=== PATIENT | female | born 1995 | race Caucasian/White ===

== ENCOUNTER 2017-07-07 17:41 | Outpatient (CLI) | payer OTHER ==
[2017-07-07 18:18] LABS: ADD MAN DIFF? NO
[2017-07-07 18:21] LABS: BASOPHILS % 0.2 % (0.0-2.0); EOSINOPHILS % 0.1 % (0.0-7.0); HEMATOCRIT 35.9 % (37.0-47.0); HEMOGLOBIN 12.1 g/dl (12.0-16.0); LYMPHOCYTES % 20.8 % (15.0-51.0); MEAN CORPUSCULAR HEMOGLOBIN 28.5 pg (29.0-33.0); MEAN CORPUSCULAR HGB CONC 33.7 g/dl (32.0-37.0); MEAN CORPUSCULAR VOLUME 84.7 fl (82.0-101.0); MEAN PLATELET VOLUME 12.6 fl (7.4-10.4); MONOCYTE # 0.6 10^3/ul (0.3-0.9); NEUTROPHIL # 6.9 10^3/ul (1.6-7.5); NEUTROPHILS % 72.6 % (39.0-77.0); PLATELET COUNT 224 10^3/UL (140-415); RED BLOOD COUNT 4.24 10^6/ul (4.20-5.40); RED CELL DISTRIBUTION WIDTH 14.3 % (11.5-14.5)
[2017-07-07 18:21] LABS: WHITE BLOOD COUNT 9.5 10^3/ul (4.8-10.8)
[2017-07-07 18:39] LABS: INR 0.89; PARTIAL THROMBOPLASTIN TIME 25.6 Sec (25.0-35.0); PROTIME 12.1 Sec (11.9-14.9); PT RATIO 0.9
[2017-07-07 18:42] LABS: ALANINE AMINOTRANSFERASE 45 IU/L (13-69); ALBUMIN 3.7 g/dl (3.3-4.9); ALBUMIN/GLOBULIN RATIO 1.12; ALKALINE PHOSPHATASE 196 IU/L (42-121); ANION GAP 16 (8-16); ASPARTATE AMINO TRANSFERASE 35 IU/L (15-46); BILIRUBIN,INDIRECT 0.1 mg/dl (0-1.1); BILIRUBIN,TOTAL 0.1 mg/dl (0.2-1.3); BLOOD UREA NITROGEN 12 mg/dl (7-20); CALCIUM 9.1 mg/dl (8.4-10.2); CARBON DIOXIDE 22 mmol/L (21-31); CHLORIDE 103 mmol/L (97-110); CREATININE 0.59 mg/dl (0.44-1.00); GLUCOSE 110 mg/dl (70-220); POTASSIUM 3.9 mmol/L (3.5-5.1); SODIUM 137 mmol/L (135-144); URIC ACID 5.9 mg/dl (3.1-7.9)
[2017-07-07 18:47] LABS: ADD UMIC YES; UR ASCORBIC ACID 40 mg/dL (NEGATIVE); UR BACTERIA FEW /HPF (NONE SEEN); UR BILIRUBIN (Dip) NEGATIVE (NEGATIVE); UR BLOOD (Dip) NEGATIVE (NEGATIVE); UR CALCIUM OXALATE CRYSTAL FEW /HPF (NONE SEEN); UR CLARITY CLOUDY (CLEAR); UR COLOR YELLOW (YELLOW); UR GLUCOSE (Dip) NEGATIVE (NEGATIVE); UR KETONES (Dip) NEGATIVE (NEGATIVE); UR LEUKOCYTE ESTERASE (Dip) 3+ Leu/ul (NEGATIVE); UR NITRITE (Dip) NEGATIVE (NEGATIVE); UR RBC 2 /HPF (0-5); UR SPECIFIC GRAVITY (Dip) 1.027 (1.003-1.030); UR SQUAMOUS EPITHELIAL CELL MODERATE /HPF (FEW); UR TOTAL PROTEIN (Dip) 1+ mg/dl (NEGATIVE); UR UROBILINOGEN (Dip) 1+ mg/dL (NEGATIVE); UR WBC 54 /HPF (0-5)
== END 2017-07-07 20:16 | disposition home or self-care (01) ==
LOC: OBT 17:41 → L-D 17:42 → OBT 20:16
DX: O13.3 Gestational [pregnancy-induced] hypertension without significant proteinuria, third trimester (principal); Z3A.37 37 weeks gestation of pregnancy
CPT/HCPCS: 36415; 76818; 80053; 81001; 84560; 85025; 85610; 85730; 87086

== ENCOUNTER 2017-07-15 17:28 | Outpatient (CLI) | payer OTHER ==
[2017-07-15 21:56] LABS: ADD UMIC YES; UR ASCORBIC ACID NEGATIVE (NEGATIVE); UR BILIRUBIN (Dip) NEGATIVE (NEGATIVE); UR BLOOD (Dip) 2+ mg/dL (NEGATIVE); UR CLARITY SLIGHTLY CLOUDY (CLEAR); UR COLOR YELLOW (YELLOW); UR GLUCOSE (Dip) NEGATIVE (NEGATIVE); UR KETONES (Dip) NEGATIVE (NEGATIVE); UR LEUKOCYTE ESTERASE (Dip) 1+ Leu/ul (NEGATIVE); UR NITRITE (Dip) NEGATIVE (NEGATIVE); UR RBC 0 /HPF (0-5); UR SPECIFIC GRAVITY (Dip) 1.017 (1.003-1.030); UR SQUAMOUS EPITHELIAL CELL FEW /HPF (FEW); UR TOTAL PROTEIN (Dip) NEGATIVE (NEGATIVE); UR UROBILINOGEN (Dip) 1+ mg/dL (NEGATIVE); UR WBC 4 /HPF (0-5)
== END 2017-07-15 23:15 | disposition home or self-care (01) ==
LOC: OBT 17:28 → L-D 17:29 → OBT 23:15
DX: O62.9 Abnormality of forces of labor, unspecified (principal); Z3A.39 39 weeks gestation of pregnancy
CPT/HCPCS: 76815; 76818; 81001

== ENCOUNTER 2017-07-20 04:05 | Inpatient (IN) | payer OTHER ==
[2017-07-20] MEDS ORDERED: CARBOPROST 250 MCG INJ IM ×2 (05:00→18:30)
[2017-07-20] MEDS ORDERED: BUTORPHANOL 2 MG INJ IV (05:00)
[2017-07-20] MEDS ORDERED: LIDOCAINE 1% (MPF) 30 ML INJ INJ (05:00)
[2017-07-20] MEDS ORDERED: IBUPROFEN 600 MG TAB PO (05:00)
[2017-07-20] MEDS ORDERED: OXYTOCIN 30 UNITS/LR 500 ML IV ×3 (05:00→18:30)
[2017-07-20 05:10] LABS: ADD MAN DIFF? NO
[2017-07-20 05:12] LABS: BASOPHILS % 0.1 % (0.0-2.0); EOSINOPHILS # 0.1 10^3/ul (0.0-0.5); EOSINOPHILS % 0.4 % (0.0-7.0); HEMATOCRIT 35.7 % (37.0-47.0); HEMOGLOBIN 11.9 g/dl (12.0-16.0); LYMPHOCYTES # 2.2 10^3/ul (0.8-2.9); LYMPHOCYTES % 13.4 % (15.0-51.0); MEAN CORPUSCULAR HEMOGLOBIN 27.4 pg (29.0-33.0); MEAN CORPUSCULAR HGB CONC 33.3 g/dl (32.0-37.0); MEAN CORPUSCULAR VOLUME 82.3 fl (82.0-101.0); MEAN PLATELET VOLUME 12.7 fl (7.4-10.4); NEUTROPHIL # 13.2 10^3/ul (1.6-7.5); NEUTROPHILS % 79.6 % (39.0-77.0); PLATELET COUNT 207 10^3/UL (140-415); RED BLOOD COUNT 4.34 10^6/ul (4.20-5.40); RED CELL DISTRIBUTION WIDTH 14.3 % (11.5-14.5)
[2017-07-20 05:12] LABS: WHITE BLOOD COUNT 16.6 10^3/ul (4.8-10.8)
[2017-07-20] MEDS: LACTATED RINGER'S 1,000 ML IV ×3 (05:31→10:12)
[2017-07-20 05:41] LABS: INR 0.92; PROTIME 12.4 Sec (11.9-14.9)
[2017-07-20 05:42] LABS: PARTIAL THROMBOPLASTIN TIME 28.1 Sec (25.0-35.0)
[2017-07-20 05:43] LABS: ALANINE AMINOTRANSFERASE 293 IU/L (13-69); ALBUMIN 3.8 g/dl (3.3-4.9); ALBUMIN/GLOBULIN RATIO 1.02; ALKALINE PHOSPHATASE 254 IU/L (42-121); ANION GAP 20 (8-16); ASPARTATE AMINO TRANSFERASE 188 IU/L (15-46); BILIRUBIN,INDIRECT 0.2 mg/dl (0-1.1); BILIRUBIN,TOTAL 0.2 mg/dl (0.2-1.3); BLOOD UREA NITROGEN 10 mg/dl (7-20); CALCIUM 9.6 mg/dl (8.4-10.2); CARBON DIOXIDE 22 mmol/L (21-31); CHLORIDE 104 mmol/L (97-110); CREATININE 0.65 mg/dl (0.44-1.00); GLUCOSE 94 mg/dl (70-220); POTASSIUM 3.9 mmol/L (3.5-5.1); SODIUM 142 mmol/L (135-144); TOTAL PROTEIN 7.5 g/dl (6.1-8.1); URIC ACID 5.2 mg/dl (3.1-7.9)
[2017-07-20] MEDS ORDERED: FENTAnyl 2MCG/ML-ROPIV 0.2% 100 ML (07:54)
[2017-07-20] MEDS ORDERED: DIPHENHYDRAMINE 50 MG INJ IV ×2 (10:00→18:00)
[2017-07-20] MEDS ORDERED: NALOXONE (0.4 MG/ML) INJ IV ×2 (10:00→18:00)
[2017-07-20] MEDS: FENTAnyl 2MCG/ML-ROPIV 0.2% 100 ML BAG EPI ×2 (10:16→13:58)
[2017-07-20] MEDS: DEXTROSE 5%-LR 1,000 ML IV (13:50)
[2017-07-20 14:25] LABS: ADD UMIC YES; UR ASCORBIC ACID NEGATIVE (NEGATIVE); UR BACTERIA FEW /HPF (NONE SEEN); UR BILIRUBIN (Dip) NEGATIVE (NEGATIVE); UR BLOOD (Dip) 3+ mg/dL (NEGATIVE); UR CLARITY SLIGHTLY CLOUDY (CLEAR); UR COLOR AMBER (YELLOW); UR GLUCOSE (Dip) NEGATIVE (NEGATIVE); UR KETONES (Dip) 1+ mg/dL (NEGATIVE); UR LEUKOCYTE ESTERASE (Dip) NEGATIVE Leu/ul (NEGATIVE); UR MUCUS FEW /HPF (NONE SEEN); UR NITRITE (Dip) NEGATIVE (NEGATIVE); UR RBC > 182 /HPF (0-5); UR SPECIFIC GRAVITY (Dip) 1.019 (1.003-1.030); UR SQUAMOUS EPITHELIAL CELL FEW /HPF (FEW); UR TOTAL PROTEIN (Dip) 2+ mg/dl (NEGATIVE); UR UROBILINOGEN (Dip) 1+ mg/dL (NEGATIVE); UR WBC 6 /HPF (0-5)
[2017-07-20] MEDS: OXYTOCIN 30 UNITS/LR 500 ML IV ×3 (14:56→22:34)
[2017-07-20] MEDS: AMPICILLIN 2 GM/NS (PMX) 100 ML IVPB ×2 (15:00→23:45)
[2017-07-20] MEDS ORDERED: ACETAMINOPHEN 1000MG/100ML IV 100 ML IVPB (15:00)
[2017-07-20] MEDS: MINERAL OIL LIGHT 10 ML VIAL TOP (15:13)
[2017-07-20] MEDS: ACETAMINOPHEN 500 MG TAB PO (15:15)
[2017-07-20] MEDS: CLINDAMYCIN 900 MG/D5W (PMX) 50 ML IVPB ×2 (15:18→21:42)
[2017-07-20 15:20] LABS: RAPID PLASMA REAGIN NONREACTIVE (NR)
[2017-07-20] MEDS: GENTAMICIN 80 MG/NS (PMX) 50 ML IVPB (16:03)
[2017-07-20] MEDS: CEFAZOLIN 2 GM/50 ML (PMX) 50 ML IVPB (16:15)
[2017-07-20] MEDS ORDERED: PHENYLephrine (100 MCG/ML) 5ML SYG ×2 (16:20→16:41)
[2017-07-20] MEDS ORDERED: OXYTOCIN 10 UNIT INJ ×2 (16:30→16:39)
[2017-07-20] MEDS ORDERED: morphine SULFATE/PF (10 MG/10 ML) INJ (16:58)
[2017-07-20] MEDS: MISOPROSTOL 200 MCG TAB PR (17:15)
[2017-07-20] MEDS: METHYLERGONOVINE 0.2 MG INJ IM (17:42)
[2017-07-20] MEDS ORDERED: ONDANSETRON 4 MG INJ IV (18:00)
[2017-07-20] MEDS ORDERED: morphine 2 MG INJ IV (18:00)
[2017-07-20] MEDS: KETOROLAC 30 MG INJ IV (18:21)
[2017-07-20] MEDS ORDERED: DEXTROSE 5%-LR 1,000 ML IV (18:27)
[2017-07-20] MEDS ORDERED: METHYLERGONOVINE 0.2 MG INJ IM (18:30)
[2017-07-20] MEDS ORDERED: MISOPROSTOL 200 MCG TAB PR (18:30)
[2017-07-20] MEDS ORDERED: METHYLERGONOVINE 0.2 MG TAB PO (18:30)
[2017-07-20] MEDS: ACETAMINOPHEN 1000MG/100ML IV 100 ML IVPB (19:19)
[2017-07-20] MEDS: OXYCODONE/ACETAMINOPHEN (5/325) TAB PO (19:22)
[2017-07-20] MEDS: ONDANSETRON 4 MG INJ IV (20:00)
[2017-07-20] MEDS: SENNA/DOCUSATE NA (8.6MG/50MG) TAB PO (21:00)
[2017-07-21] MEDS: GENTAMICIN 80 MG/NS (PMX) 50 ML IVPB ×3 (01:15→16:55)
[2017-07-21] MEDS: OXYCODONE/ACETAMINOPHEN (5/325) TAB PO ×4 (02:30→18:11)
[2017-07-21] MEDS: KETOROLAC 30 MG INJ IV (05:23)
[2017-07-21] MEDS: AMPICILLIN 2 GM/NS (PMX) 100 ML IVPB ×4 (05:38→23:57)
[2017-07-21] MEDS: CLINDAMYCIN 900 MG/D5W (PMX) 50 ML IVPB ×3 (06:39→21:23)
[2017-07-21] MEDS: SENNA/DOCUSATE NA (8.6MG/50MG) TAB PO ×2 (09:09→21:22)
[2017-07-21 10:55] LABS: HEMATOCRIT 29.5 % (37.0-47.0); HEMOGLOBIN 9.9 g/dl (12.0-16.0); MEAN CORPUSCULAR HEMOGLOBIN 27.7 pg (29.0-33.0); MEAN CORPUSCULAR HGB CONC 33.6 g/dl (32.0-37.0); MEAN CORPUSCULAR VOLUME 82.4 fl (82.0-101.0); MEAN PLATELET VOLUME 12.5 fl (7.4-10.4); PLATELET COUNT 153 10^3/UL (140-415); RED BLOOD COUNT 3.58 10^6/ul (4.20-5.40); RED CELL DISTRIBUTION WIDTH 14.5 % (11.5-14.5)
[2017-07-21 10:55] LABS: WHITE BLOOD COUNT 15.9 10^3/ul (4.8-10.8)
[2017-07-21 11:10] LABS: ADD MAN DIFF? YES; POSITIVE DIFF @See below
[2017-07-21 12:57] LABS: WHITE BLOOD COUNT 15.1 10^3/ul (4.8-10.8)
[2017-07-21 12:57] LABS: HEMATOCRIT 29.4 % (37.0-47.0); HEMOGLOBIN 9.9 g/dl (12.0-16.0); MEAN CORPUSCULAR HEMOGLOBIN 27.9 pg (29.0-33.0); MEAN CORPUSCULAR HGB CONC 33.7 g/dl (32.0-37.0); MEAN CORPUSCULAR VOLUME 82.8 fl (82.0-101.0); MEAN PLATELET VOLUME 12.5 fl (7.4-10.4); PLATELET COUNT 146 10^3/UL (140-415); RED BLOOD COUNT 3.55 10^6/ul (4.20-5.40); RED CELL DISTRIBUTION WIDTH 14.5 % (11.5-14.5)
[2017-07-21 13:10] LABS: ANISOCYTOSIS 2+ (0-0); BAND NEUTROPHILS #M 4.9 10^3/ul (0.0-0.6); BAND NEUTROPHILS % (M) 31 % (0-4); LYMPHOCYTES #M 1.2 10^3/ul (0.8-2.9); LYMPHOCYTES % (M) 8 % (15-51); MICROCYTOSIS 2+ (0-0); MONOCYTE #M 0.1 10^3/ul (0.3-0.9); MONOCYTES % (M) 1 % (0-11); PLATELET ESTIMATE NORMAL; POLYCHROMASIA 3+ (0-0); SEG NEUT #M 10.3 10^3/ul (1.6-7.5); SEGMENTED NEUTROPHILS (M) % 60 % (39-77); SMUDGE%M 2 % (0-0)
[2017-07-21 13:12] LABS: POSITIVE DIFF @See below
[2017-07-21 13:13] LABS: ADD MAN DIFF? YES
[2017-07-21 13:19] LABS: ALANINE AMINOTRANSFERASE 177 IU/L (13-69); ALBUMIN 2.5 g/dl (3.3-4.9); ALBUMIN/GLOBULIN RATIO 0.89; ALKALINE PHOSPHATASE 137 IU/L (42-121); ANION GAP 13 (8-16); ASPARTATE AMINO TRANSFERASE 102 IU/L (15-46); BILIRUBIN,INDIRECT 0.2 mg/dl (0-1.1); BILIRUBIN,TOTAL 0.2 mg/dl (0.2-1.3); BLOOD UREA NITROGEN 9 mg/dl (7-20); CALCIUM 7.9 mg/dl (8.4-10.2); CARBON DIOXIDE 26 mmol/L (21-31); CHLORIDE 101 mmol/L (97-110); CREATININE 0.82 mg/dl (0.44-1.00); GLUCOSE 58 mg/dl (70-220); POTASSIUM 3.7 mmol/L (3.5-5.1); SODIUM 136 mmol/L (135-144); TOTAL PROTEIN 5.3 g/dl (6.1-8.1)
[2017-07-21] MEDS: IBUPROFEN 800 MG TAB PO ×2 (14:00→21:22)
[2017-07-21 14:10] LABS: ANISOCYTOSIS 2+ (0-0); BAND NEUTROPHILS #M 2.8 10^3/ul (0.0-0.6); BAND NEUTROPHILS % (M) 19 % (0-4); BASOPHIL #M 0.3 10^3/ul (0.0-0.0); BASOPHILS % (M) 2 % (0-2); EOSINOPHILS % (M) 1 % (0-7); GIANT THROMBO% (M) 4 % (0-0); LYMPHOCYTES #M 1.3 10^3/ul (0.8-2.9); LYMPHOCYTES % (M) 9 % (15-51); METAMYELOCYTES #M 0.1 10^3/ul (0.0-0.0); METAMYELOCYTES %M 1 % (0-0); MICROCYTOSIS 2+ (0-0); MONOCYTE #M 0.6 10^3/ul (0.3-0.9); MONOCYTES % (M) 4 % (0-11); OVALOCYTES 1+ (0-0); PLATELET ESTIMATE NORMAL; POLYCHROMASIA 1+ (0-0); SEG NEUT #M 10.1 10^3/ul (1.6-7.5); SEGMENTED NEUTROPHILS (M) % 64 % (39-77); SMUDGE%M 2 % (0-0)
[2017-07-21] MEDS: LANOLIN 7 GM TUBE TOP (17:19)
[2017-07-22] MEDS: OXYCODONE/ACETAMINOPHEN (5/325) TAB PO ×6 (00:23→20:28)
[2017-07-22] MEDS: GENTAMICIN 80 MG/NS (PMX) 50 ML IVPB ×3 (01:05→17:05)
[2017-07-22] MEDS: AMPICILLIN 2 GM/NS (PMX) 100 ML IVPB ×4 (05:29→23:52)
[2017-07-22] MEDS: IBUPROFEN 800 MG TAB PO ×3 (05:31→21:57)
[2017-07-22] MEDS: CLINDAMYCIN 900 MG/D5W (PMX) 50 ML IVPB ×3 (06:38→21:57)
[2017-07-22] MEDS: SENNA/DOCUSATE NA (8.6MG/50MG) TAB PO ×2 (08:49→20:27)
[2017-07-22] MEDS ORDERED: INFLUENZA VIRUS VACCINE 0.5 ML (DISPENSING) IM* (09:00)
[2017-07-22 09:49] LABS: ADD MAN DIFF? NO
[2017-07-22 09:58] LABS: WHITE BLOOD COUNT 18.2 10^3/ul (4.8-10.8)
[2017-07-22 09:58] LABS: BASOPHIL # 0.1 10^3/ul (0.0-0.1); BASOPHILS % 0.3 % (0.0-2.0); EOSINOPHILS # 0.1 10^3/ul (0.0-0.5); EOSINOPHILS % 0.6 % (0.0-7.0); HEMATOCRIT 30.6 % (37.0-47.0); HEMOGLOBIN 10.5 g/dl (12.0-16.0); LYMPHOCYTES # 2.4 10^3/ul (0.8-2.9); LYMPHOCYTES % 13.3 % (15.0-51.0); MEAN CORPUSCULAR HEMOGLOBIN 28.4 pg (29.0-33.0); MEAN CORPUSCULAR HGB CONC 34.3 g/dl (32.0-37.0); MEAN CORPUSCULAR VOLUME 82.7 fl (82.0-101.0); MEAN PLATELET VOLUME 12.8 fl (7.4-10.4); MONOCYTE # 0.6 10^3/ul (0.3-0.9); MONOCYTES % 3.3 % (0.0-11.0); NEUTROPHIL # 14.9 10^3/ul (1.6-7.5); NEUTROPHILS % 81.5 % (39.0-77.0); PLATELET COUNT 181 10^3/UL (140-415); RED CELL DISTRIBUTION WIDTH 14.6 % (11.5-14.5)
[2017-07-23] MEDS: GENTAMICIN 80 MG/NS (PMX) 50 ML IVPB ×3 (01:35→17:14)
[2017-07-23] MEDS: OXYCODONE/ACETAMINOPHEN (5/325) TAB PO ×3 (02:30→15:50)
[2017-07-23] MEDS: CLINDAMYCIN 900 MG/D5W (PMX) 50 ML IVPB ×3 (05:24→21:20)
[2017-07-23] MEDS: IBUPROFEN 800 MG TAB PO ×3 (05:24→21:20)
[2017-07-23] MEDS: AMPICILLIN 2 GM/NS (PMX) 100 ML IVPB ×3 (06:10→18:44)
[2017-07-23] MEDS ORDERED: DIPHTH/TET/ACEL PERTUSS (ADULT) 0.5 ML VIAL IM* (09:00)
[2017-07-23] MEDS ORDERED: MEASLES,MUMPS,RUBELLA VACCINE INJ SC* (09:00)
[2017-07-23] MEDS: SENNA/DOCUSATE NA (8.6MG/50MG) TAB PO ×2 (09:35→21:20)
[2017-07-24] MEDS: AMPICILLIN 2 GM/NS (PMX) 100 ML IVPB ×3 (00:15→11:48)
[2017-07-24] MEDS: GENTAMICIN 80 MG/NS (PMX) 50 ML IVPB ×2 (01:45→09:12)
[2017-07-24] MEDS: OXYCODONE/ACETAMINOPHEN (5/325) TAB PO ×4 (02:45→18:05)
[2017-07-24] MEDS: CLINDAMYCIN 900 MG/D5W (PMX) 50 ML IVPB ×2 (05:10→13:46)
[2017-07-24] MEDS: IBUPROFEN 800 MG TAB PO ×2 (05:11→13:46)
[2017-07-24] MEDS: SENNA/DOCUSATE NA (8.6MG/50MG) TAB PO (09:13)
[2017-07-24 10:39] LABS: ADD MAN DIFF? NO
[2017-07-24 10:45] LABS: BASOPHIL # 0.1 10^3/ul (0.0-0.1); BASOPHILS % 0.5 % (0.0-2.0); EOSINOPHILS # 0.2 10^3/ul (0.0-0.5); EOSINOPHILS % 1.4 % (0.0-7.0); HEMATOCRIT 29.8 % (37.0-47.0); LYMPHOCYTES # 1.9 10^3/ul (0.8-2.9); LYMPHOCYTES % 17.8 % (15.0-51.0); MEAN CORPUSCULAR HEMOGLOBIN 27.6 pg (29.0-33.0); MEAN CORPUSCULAR HGB CONC 33.6 g/dl (32.0-37.0); MEAN CORPUSCULAR VOLUME 82.3 fl (82.0-101.0); MEAN PLATELET VOLUME 11.3 fl (7.4-10.4); MONOCYTE # 0.6 10^3/ul (0.3-0.9); MONOCYTES % 5.8 % (0.0-11.0); NEUTROPHILS % 73.3 % (39.0-77.0); PLATELET COUNT 289 10^3/UL (140-415); RED BLOOD COUNT 3.62 10^6/ul (4.20-5.40); RED CELL DISTRIBUTION WIDTH 14.5 % (11.5-14.5)
[2017-07-24 10:45] LABS: WHITE BLOOD COUNT 10.9 10^3/ul (4.8-10.8)
[2017-07-28 15:41] LABS: CHENODEOXYCHOLIC ACID 1.6 umol/L (< OR = 3.1); CHOLIC ACID 4.3 umol/L (< OR = 1.8); DEOXYCHOLIC ACID <0.5 umol/L (< OR = 2.4); TOTAL BILE ACIDS 5.9 umol/L (< OR = 6.8)
== END 2017-07-24 18:55 | disposition home or self-care (01) | DRG 765 ==
LOC: OBT 04:05 → L-D 04:07 → OBT 04:32 → L-D 04:36 → PP1 22:03
PROC: 10D00Z1 Extraction of Products of Conception, Low, Open Approach (ICD-10-PCS; principal; 2017-07-20 16:00)
PROC: 3E033VJ Introduction of Other Hormone into Peripheral Vein, Percutaneous Approach (ICD-10-PCS; 2017-07-20 16:00)
DX: O14.94 Unspecified pre-eclampsia, complicating childbirth (principal); O41.1230 Chorioamnionitis, third trimester, not applicable or unspecified; O75.2 Pyrexia during labor, not elsewhere classified; O62.1 Secondary uterine inertia; Z3A.39 39 weeks gestation of pregnancy; Z37.0 Single live birth
CPT/HCPCS: 62319; 76818; 80053; 81001; 83789; 84560; 85025; 85610; 85730; 86592; 86850; 86900; 86901; 87070; 87075; 88307; 90686; 94760; 99464